=== PATIENT | male | born 1955 | race Caucasian/White ===

== ENCOUNTER 2022-04-22 14:19 | Inpatient (IN) | payer OTHER ==
[~2022-04-22] VITALS: Ht 185.4 cm; Wt 161.8 kg
[~2022-04-22 14:19] MED LIST: AMBIEN 5MG TABLE5 MG PO; BACTRIM DS 8001 TAB PO; CEPHALEXIN500 M1 PO
[2022-04-22 14:59] LABS: BASO % 0.4 % (0.0-2.0); EOS % 0.4 % (0.0-4.0); GRAN # 5.8 K/mm3 (1.4-6.5); GRAN % 72.9 % (42.2-75.2); LYMPH # 1.3 K/mm3 (1.2-3.4); LYMPH % 16.5 % (20.0-51.0); MEAN CELL VOLUME 101 fl (80.0-100.0); MEAN CORPUSCULAR HGB CONC 32 g/dl (33.0-37.0); MONO # 0.7 K/mm3 (0.1-0.6); MONO % 9.3 % (1.7-9.3); PLATELET COUNT 150 K/mm3 (130-400); RED BLOOD COUNT 5.74 M/mm3 (4.20-5.60); REDCELL DISTRIBUTION WIDTH-CV 14.3 % (11.5-14.5)
[2022-04-22 15:03] LABS: HEMATOCRIT 57.9 % (42.0-52.0); HEMOGLOBIN 18.4 g/dl (13.5-18.0); MEAN CORPUSCULAR HEMOGLOBIN 32 pg (27-31)
[2022-04-22 15:13] LABS: ARTERIAL BLD GAS O2 SATURATION 90.5 % (92-100); ARTERIAL BLD GAS TCO2 CT 41.6; ARTERIAL BLOOD GAS HCO3 39.1 meq/L (22-26); ARTERIAL BLOOD GAS PO2 59.3 mmHg (80-100); ARTERIAL BLOOD GAS pH 7.31 (7.35-7.45)
[2022-04-22 15:47] LABS: ALBUMIN 3.2 gm/dL (3.4-4.8); BILIRUBIN,TOTAL 0.9 mg/dL (0.2-1.2); CALCIUM 9.1 mg/dL (8.4-10.2); CREATININE, serum 1.06 mg/dL (0.72-1.25); TOTAL PROTEIN 6.6 gm/dL (6.2-8.1)
[2022-04-22 15:55] LABS: TROPONIN-I 0.042 ng/mL (0.00-0.033)
[2022-04-22 16:08] LABS: POTASSIUM 4.3 mmol/L (3.5-4.5)
[2022-04-22 19:52] VITALS: BP 129/74; PULSE 91; TEMP 97.6
[2022-04-22 23:12] VITALS: BP 150/82; PULSE 91; TEMP 98.1
--- NOTE | 2022-04-22 23:36 | NUR ---
PATIENT IS AOX4 AND PLEASANT TO SPEAK WITH. HE WAS ADMITTED FROM THE EMERGENCY DEPARTMENT ON A GURNEY AND TRANSFERRED TO A BARIATRIC BED. ASSESSMENT COMPLETED. RIGHT SIDE OF HIS LUNGS ARE DIMINISHED. NO SHORTNESS OF AIR AT TIME OF ASSESSMENT, ON 5L VIA NC AND TRANSFERRED TO BIPAP FOR NIGHT TIME DUE TO HIGH PCO2. HE IS ANXIOUS TO HAVE THE BIPAP ON STATING, "IS THIS WHERE MY LIFE ENDS?" THIS NURSE REASSURED HIM THAT THE STAFF WILL DO WHAT WE POSSIBLY CAN AND WILL KEEP HIM INFORMED ABOUT WHAT IS GOING ON AT ALL TIMES. HE APPRECIATED THE REASSURANCE. BLE 3+ PITTING EDEMA, GENERALIZED 1-2+ EDEMA. CONTINUES ON LASIX IV BID. BOTH IV FLUSH EASILY, LEFT HAND IV RETAPED DOWN. RUNNING SR WITH PAC'S ON TELEMETRY. ECHO- NORMAL EF WITH MILD DIASTOLIC DYSFUNCTION. STRESS TEST PLANNED. DETERMINING BETWEEN CHF AND PNEUMONIA. CONTINUES ON ABX FOR CELLULITIS. PT/OT ORDERED. CALL LIGHT IN REACH. BED IN LOWEST POSITION. FALL RISK. KNOWS TO USE CALL LIGHT FOR ASSISTANCE.
[2022-04-23 03:31] VITALS: BP 114/51; PULSE 86; TEMP 98.1
[2022-04-23 06:44] LABS: BASO % 0.5 % (0.0-2.0); EOS # 0.1 K/mm3 (0.0-0.7); EOS % 0.8 % (0.0-4.0); GRAN # 4.3 K/mm3 (1.4-6.5); GRAN % 65.1 % (42.2-75.2); HEMOGLOBIN 17.4 g/dl (13.5-18.0); LYMPH # 1.4 K/mm3 (1.2-3.4); LYMPH % 21.8 % (20.0-51.0); MEAN CELL VOLUME 102 fl (80.0-100.0); MEAN CORPUSCULAR HEMOGLOBIN 32 pg (27-31); MEAN CORPUSCULAR HGB CONC 32 g/dl (33.0-37.0); MONO # 0.7 K/mm3 (0.1-0.6); MONO % 11.3 % (1.7-9.3); PLATELET COUNT 133 K/mm3 (130-400); RED BLOOD COUNT 5.41 M/mm3 (4.20-5.60); REDCELL DISTRIBUTION WIDTH-CV 14.2 % (11.5-14.5)
[2022-04-23 06:45] LABS: HEMATOCRIT 55.3 % (42.0-52.0)
[2022-04-23 07:00] VITALS: BP 115/69; PULSE 95; TEMP 98.6
[2022-04-23 07:04] LABS: ALBUMIN 3.1 gm/dL (3.4-4.8); CREATININE, serum 0.85 mg/dL (0.72-1.25); MAGNESIUM 1.5 mg/dL (1.6-2.6); PHOSPHOROUS 4.9 mg/dL (2.3-4.7); POTASSIUM 4.2 mmol/L (3.5-4.5)
[2022-04-23 11:00] VITALS: BP 108/61; PULSE 89; TEMP 98.3
[2022-04-23] MEDS ORDERED: GLUCOTROL 5M5 MG/TAB PO (11:05)
[2022-04-23] MEDS ORDERED: ZYLOPRIM 300MG300 MG PO (11:05)
[2022-04-23] MEDS ORDERED: GLUCOPHAGE500 MG/TAB PO (11:05)
[2022-04-23] MEDS ORDERED: LASIX 40MG TABL40 MG PO (11:06)
[2022-04-23] MEDS ORDERED: ZOCOR 40MG40 MG PO (11:06)
[2022-04-23] MEDS ORDERED: DITROPAN 5MG TAB5 MG PO (11:07)
--- NOTE | 2022-04-23 14:19 | NUR ---
Business Solutions Architect met with patient to discuss discharge planning. Patient lives alone in [place] and goes to the [facility] for primary care. Patient states he goes to the [facility] for "bigger needs" and medications. Patient does not have any DME at home, but is currently requiring oxygen. Patient stated he has been told he may also need a home CPAP or BIPAP. Patient advised he is normally independent with ADLS and plans to return home at time of discharge. Patient does not have DPOA-HC and is not interested in completing one at this time. Patient provided his brother, Julian (ph#[phone]) as a contact. Discharge Plan: Home, may need home oxygen
[2022-04-23 15:32] VITALS: BP 130/70; PULSE 97; TEMP 98.1
[2022-04-23 20:10] VITALS: BP 110/62; PULSE 78; TEMP 98.1
[2022-04-23 23:40] VITALS: BP 128/72; PULSE 86; TEMP 97.5
--- NOTE | 2022-04-24 03:34 | NUR ---
PATIENT ASSESSED AND GIVEN NIGHTLY MEDICATIONS. THIS NURSE ENTERED HIS ROOM, HE WAS CLEARLY UPSET AND CRYING. HE STATED, "HOW LONG UNTIL I ?" "I WOULD RATHER AT HOME." "CAN I LEAVE TO GO TAKE CARE OF MY DOG?". THIS NURSE EXPLAINED THAT HIS OXYGEN NEEDS ARE TOO HIGH FOR HIM TO GO HOME WITHOUT OXYGEN AND CARE FOR HIS DOG, UNLESS THAT IS WHAT HE WANTS. HE CALMED DOWN ENOUGH THAT HE WAS OKAY WITH STAYING BUT HAS BEEN ITCHING TO CALL HIS BROTHER TO COME GET HIM AND TAKE HIM HOME. USED HIS BIPAP FOR NEARLY 5HRS LAST NIGHT AND PLACED BACK ON 6L VIA HF. NPO SINCE MIDNIGHT FOR HEART CATHETERIZATION. GETTING BUMEX IV FOR DIURESIS. BLOOD GLUCOSE MONITORING SWITCHED TO ACHS FROM [facility]. CALL LIGHT IN REACH. BED IN LOWEST POSITION. HEART CATH CONSENT SIGNED AND IN CHART.
[2022-04-24 03:56] VITALS: BP 109/59; PULSE 86; TEMP 98.5
[2022-04-24 06:55] LABS: BASO % 0.4 % (0.0-2.0); EOS # 0.1 K/mm3 (0.0-0.7); EOS % 0.8 % (0.0-4.0); GRAN # 5.4 K/mm3 (1.4-6.5); GRAN % 72.4 % (42.2-75.2); HEMOGLOBIN 17.6 g/dl (13.5-18.0); INR 1.3 (0.8-3.0); LYMPH # 1.2 K/mm3 (1.2-3.4); LYMPH % 16.3 % (20.0-51.0); MEAN CELL VOLUME 102 fl (80.0-100.0); MEAN CORPUSCULAR HEMOGLOBIN 32 pg (27-31); MEAN CORPUSCULAR HGB CONC 31 g/dl (33.0-37.0); MEAN PLATELET VOLUME 10.7 fl (7.4-10.4); MONO # 0.7 K/mm3 (0.1-0.6); MONO % 9.7 % (1.7-9.3); PLATELET COUNT 125 K/mm3 (130-400); PROTHROMBIN TIME 14.8 SECONDS (9.7-12.8); RED BLOOD COUNT 5.48 M/mm3 (4.20-5.60); REDCELL DISTRIBUTION WIDTH-CV 13.7 % (11.5-14.5)
[2022-04-24 06:58] LABS: PARTIAL THROMBOPLASTIN TIME 33.3 SECONDS (26.0-37.0)
[2022-04-24 07:02] LABS: ALBUMIN 3.2 gm/dL (3.4-4.8); CALCIUM 9.3 mg/dL (8.4-10.2); CREATININE, serum 0.71 mg/dL (0.72-1.25); MAGNESIUM 1.3 mg/dL (1.6-2.6); PHOSPHOROUS 3.1 mg/dL (2.3-4.7); POTASSIUM 3.6 mmol/L (3.5-4.5)
[2022-04-24 07:07] VITALS: BP 135/75; PULSE 99; TEMP 98.6
[2022-04-24 07:15] VITALS: BP 123/69; PULSE 66; TEMP 98.2
--- NOTE | 2022-04-24 07:52 | NUR ---
UPON ENTERING ROOM, PATIENT COMES OFF UNPLEASANT AND "READY TO LEAVE." AFTER DISCUSSING WITH THE PATIENT, HE SAID HE DOEST WANT TO MAKE ANY DECISIONS AT THIS TIME REGARDING A HEART CAT UNTIL HE SPEAKS WITH THE DOCTORS. PATIENT SAID HE WOULD LIKE TO EAT BREAKFAST WHILE WAITING. I INFORMED HIM THAT I WILL NOT BE CHANGING HIS DIET ORDER UNTIL I RECIEVE THE OK FROM A DOCTOR, AND UNTIL HE SPEAKS WITH A DOCTOR ABOUT WHAT HE WOULD LIKE TO DO. PATIENT CAN BE ARGUMENTATIVE.
--- NOTE | 2022-04-24 09:45 | NUR ---
PATIENT AGAIN CALLED RN TO ROOM THAT HE WANTS TO EAT BREAKFAST. CAROLINE STATED HE DOES NOT CARE OF HE DOES NOT GET A HEART CATH DONE TODAY OR ANY DAY. PAGED CARDIOLOGY WHO SAID TO RESUME DIET AND THEY WILL TRY TO SPEAK WITH THE PATIENT SOON.
--- NOTE | 2022-04-24 10:00 | NUR ---
PALLIATIVE CARE TEAM AT BEDSIDE.
--- NOTE | 2022-04-24 10:28 | NUR ---
Initial visit; Patient thanked Newspaper Delivery Driver for looking in on him and listening. Patient talked of knowing God since he was [age] years old and prays often. 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 Setter Cold Rolling Machine informed me since that Dimitry has made the decision to go home with [facility]. In our conversation he stated that he is ready to go (). Newspaper Delivery Driver mentioned a couple times that since he believes strongly in prayer, that he should pray as much as he can and Newspaper Delivery Driver will keep him in her prayers as well.
--- NOTE | 2022-04-24 11:02 | NUR ---
Annmarie SS and I met w/Dimitry regarding goals of care. Dimitry stated he wanted to go home w/Hospice. Annmarie is setting up home 02-hopeful we can get 10L for him in the home. Pt states he wants to go home to his dog Shunk and doesn't wish to in the hospital. States his neetu is strong. Offered Enrobing Machine Feeder services, states he saw Enrobing Machine Feeder Lindsey this am and is appreciative of her services.
--- NOTE | 2022-04-24 12:08 | NUR ---
PATIENT STATED HE WANTS TO GO HOME RIGHT AFTER HE SPEAKS WITH THE HOSPICE REP. PATIENT STATED "WHETHER I MAKE IT 5 MINUTES OR 5 YEARS, DOESNT MATTER ANYMORE." INFORMED MD AND SW THAT PATIENT SOUNDS LIKE HE WOULD LIKE TO GO HOME, WITH OR WITHOUT OXYGEN.
--- NOTE | 2022-04-24 12:10 | NUR ---
CAROLINE VOICING HIS DESIRE TO GO HOME WITHOUT OXYGEN. PATIENT IS AWARE THAT WE WILL NEED TO SPEAK WITH HOPSICE TO SET UP CARE WELL HOME OXYGEN DUE TO HIS 10L NC REQUIRMENT. PATIENT STATED HE IS GOING HOME "TODAY!"
--- NOTE | 2022-04-24 12:50 | NUR ---
HOSPICE AT PATIENT BEDSIDE.
--- NOTE | 2022-04-24 13:00 | NUR ---
PATIENT CONTINUES TO INSULT THIS RN, AND EACH TIME AFTER BEING RUDE SAYS "OH, GODBLESS YOU." THEN LAUGHS. INFORMED PATIENT HE CAN PRESS CALL LIGHT IF HE IS NEED FOR ANYTHING. CALL LIGHT IS WITHIN REACH.
--- NOTE | 2022-04-24 14:59 | NUR ---
Spinning Frame Cleaner attended clinical rounds with the team. Patient expressed that he wants hospice and does not want any aggressive treatments or measures. KRISTY and RN-CM met with patient who confirmed this and stated what is most important to him is going home to be with his dog, [place]. Patient agreeable to meet with a sales representative aircraft from [facility] to go over what hospice included and what to expect. KRISTY contacted Eron and faxed referral. KRISTY also updated Eron that per our admissions team, patient also has Medicare. Patient is currently on 10 liters which [facility] advised they can do, but would be their max. After meeting with the patient, Eron and Albina from [facility] contacted KRISTY and advised they would not be comfortable accepting patient unless he has someone to check in on him daily or is agreeable to hospice in a nursing facility. KRISTY met with patient to discuss this. Patient stated his brother, Julian is willing and able to come to his home in person on a daily basis. Patient stated Julian has been ready to do this, but patient has been hesitant as he does not want to be a burden to his brother. Patient also stated he would be open to privately hiring caregivers either through an agency or through informal means. Patient was agreeable to let [facility] contact his brother, Julian to discuss plan of care after initially not wanting Julian involved. KRISTY updated Eron at [facility] who will start working on ordering equipment. KRISTY updated Hospitalist. KRISTY also spoke with VAUGHN Weinstein about patient's plan of care.
--- NOTE | 2022-04-24 16:00 | NUR ---
PATIENT ASLEEP IN RECLINER. CALL LIGHT WITH INREACH. PATIENT APPEARS TO BE IN NO ACUTE DISTRESS.
--- NOTE | 2022-04-24 18:15 | NUR ---
PATIENT APOLOGIZED FOR EARLIER BEHAVIOR STATING "I LOVE YOU GUYS, I REALLY DO, YOUR ALL SO NICE JUST TRYING TO TAKE CARE OF ME." PROVIDED ENCOURAGING WORDS. PATIENT SEEMS UPSET WITH MEDICAL SITUATION HOWEVER VOICES BEING READY TO RETURN HOME WITH HIS DOG. CALL LIGHT WITH IN REACH. URINAL WITH IN REACH.
--- NOTE | 2022-04-25 08:00 | NUR ---
Patient is seated on the side of the bed, alert and oriented x 4, expecting to go home today and see his dog. States he has not felt the need to smoke, and he hopes he could keep that way once he gets out of the hospital. Assessment completed, meds provided. Continues with 9L O2. Call light within reach. No other needs at this time. Breakfast just arrived.
[2022-04-25] MEDS ORDERED: TRANSDERM-0.5 MG/21 TD (08:29)
[2022-04-25] MEDS ORDERED: ROXANOL 20MG20 MG/ML SL (08:29)
[2022-04-25] MEDS ORDERED: MELATIN 3 MG-11 TAB PO (08:30)
[2022-04-25] MEDS ORDERED: BUMEX 1MG TA1 MG/TA1 PO (08:30)
[2022-04-25] MEDS ORDERED: ATIVAN 0.50.5 MG/TAB PO (08:31)
--- NOTE | 2022-04-25 10:43 | NUR ---
Follow-up visit; Patient talked with Bread Pan Greaser about his leaving with [facility] to go home. He talked about dying and his fears. Bread Pan Greaser listened and talked with him about his dog and his love for his dog and about unconditional love and God's love for us, sins and all. told Dimitry he is in good hands and what a blessing it has been for her to spend time with him. Dimitry thanked Bread Pan Greaser.
--- NOTE | 2022-04-25 12:00 | NUR ---
Patient was provided with discharge information, education about medications, oxygen use, and hospice services was reviewed. All questions answered. Pt's brother came to pick him up with portable O2. Pt was taken to the entrance by wheelchair.
--- NOTE | 2022-04-25 13:33 | NUR ---
Movie Writer spoke with Eron at [facility] who advised they are ready to accept patient this morning. SW faxed discharge orders. SW contacted patient's brother, Julian who will be here to fruit picker machine operator patient at 1030. SW reminded Julian to bring portable oxygen for transport. KRISTY met with patient who is agreeable to discharge plan of home with hospice today.
== END 2022-04-25 12:00 | disposition hospice, home (50) | DRG 189 ==
LOC: COL.ER 14:19 → MEDICAL 16:00
PROVIDERS: Emergency Medicine; ADMIT Internal Medicine
PROC: 5A09457 Assistance with Respiratory Ventilation, 24-96 Consecutive Hours, Continuous Positive Airway Pressure (ICD-10-PCS; principal; 2022-04-22)
DX: J96.01 Acute respiratory failure with hypoxia (principal); E66.2 Morbid (severe) obesity with alveolar hypoventilation; J90 Pleural effusion, not elsewhere classified; Z68.41 Body mass index [BMI] 40.0-44.9, adult; J96.22 Acute and chronic respiratory failure with hypercapnia; I27.20 Pulmonary hypertension, unspecified; Z66 Do not resuscitate; Z51.5 Encounter for palliative care; M10.9 Gout, unspecified; E83.42 Hypomagnesemia; Z20.822 Contact with and (suspected) exposure to COVID-19; E11.9 Type 2 diabetes mellitus without complications; F17.210 Nicotine dependence, cigarettes, uncomplicated; J44.9 Chronic obstructive pulmonary disease, unspecified; I50.810 Right heart failure, unspecified; D75.1 Secondary polycythemia; Z90.79 Acquired absence of other genital organ(s); Z79.84 Long term (current) use of oral hypoglycemic drugs; Z23 Encounter for immunization
CPT/HCPCS: J0696; J1644; J1940; J3475; Q9967